=== PATIENT | female | born 1975 | race Caucasian/White ===

== ENCOUNTER 2018-10-31 12:48 | Emergency (ER) | payer OTHER ==
[~2018-10-31] VITALS: Ht 160 cm; Wt 72.6 kg
--- NOTE | 2018-10-31 14:11 | RAD ---
PQRS Compliance Statement: One or more of the following individualized dose reduction techniques were utilized for this examination: 1. Automated exposure control 2. Adjustment of the mA and/or kV according to patient size 3. Use of iterative reconstruction technique CT head without contrast 10/31/2018 1:48 PM INDICATION: Atypical headache with facial numbness COMPARISON: None available TECHNIQUE: Multiple axial CT images of the head were obtained from skull base through the vertex without intravenous contrast. FINDINGS: Head: Ventricles, sulci and basal cisterns are within normal limits. There is no hydrocephalus. Ford-white matter differentiation is normal. There is no acute intracranial hemorrhage. There is no mass, mass effect or midline shift. Posterior fossa is normal in appearance. Visualized portions of the orbits are normal. Paranasal sinuses are well aerated. Mastoid air cells are well aerated. Scalp and calvaria are normal. IMPRESSION: No acute intracranial hemorrhage. Electronically signed by: Yana Meyers MD (10/31/2018 2:08 PM) [id number]
[2018-10-31] MEDS ORDERED: SUMAtriptan SUCC 6 MG/0.5 ML VIAL SQ ONE (14:15)
--- NOTE | 2018-10-31 14:17 | PHYS DOC ---
Past History Past Medical History: Anxiety, Depression Past Surgical History: Other Alcohol Use: Occasionally Drug Use: None Adult General Chief Complaint Chief Complaint: HEADACHE HPI HPI Patient is a 43-year-old female who presents with complaint of headache for the last couple of days as well as numbness in her right religious region. She indicates that she has a history of migraine headaches and states that currently her headache is more in the back of her head on the right hand side. She states that the numbness is a new symptom for her. She admits to some mild nausea but is had no vomiting. She does admit to photophobia as well as phonophobia.[] Review of Systems Review of Systems Constitutional: Denies fever or chills [] Eyes: Denies change in visual acuity, redness, or eye pain [] HENT: Denies nasal congestion or sore throat [] Respiratory: Denies cough or shortness of breath [] Cardiovascular: No additional information not addressed in HPI [] GI: Denies abdominal pain, nausea, vomiting, bloody stools or diarrhea [] : Denies dysuria or hematuria [] Musculoskeletal: Denies back pain or joint pain [] Integument: Denies rash or skin lesions [] Neurologic: Denies headache, focal weakness or sensory changes [] Endocrine: Denies polyuria or polydipsia [] All other systems were reviewed and found to be within normal limits, except as documented in this note. Physical Exam Physical Exam Constitutional: Well developed, well nourished, no acute distress, non-toxic appearance. [] HENT: Normocephalic, atraumatic, bilateral external ears normal, oropharynx moist, no oral exudates, nose normal. [] Eyes: PERRLA, EOMI, conjunctiva normal, no discharge. [] Neck: Normal range of motion, no tenderness, supple, no stridor. [] Cardiovascular:Heart rate regular rhythm, no murmur [] Lungs & Thorax: Bilateral breath sounds clear to auscultation [] Abdomen: Bowel sounds normal, soft, no tenderness, no masses, no pulsatile masses. [] Skin: Warm, dry, no erythema, no rash. [] Back: No tenderness, no CVA tenderness. [] Extremities: No tenderness, no cyanosis, no clubbing, ROM intact, no edema. [] Neurologic: Alert and oriented X 3, normal motor function, normal sensory function, no focal deficits noted. [] Psychologic: Affect normal, judgement normal, mood normal. [] Current Patient Data Vital Signs Vital Signs Date Time Temp Pulse Resp B/P (MAP) Pulse Ox O2 Delivery O2 Flow Rate FiO2 10/31/18 13:00 97.1 81 21 96 Room Air EKG EKG [] Radiology/Procedures Radiology/Procedures [] Impressions: PROCEDURE: CT HEAD WO CONTRAST PQRS Compliance Statement: One or more of the following individualized dose reduction techniques were utilized for this examination: 1. Automated exposure control 2. Adjustment of the mA and/or kV according to patient size 3. Use of iterative reconstruction technique CT head without contrast 10/31/2018 1:48 PM INDICATION: Atypical headache with facial numbness COMPARISON: None available TECHNIQUE: Multiple axial CT images of the head were obtained from skull base through the vertex without intravenous contrast. FINDINGS: Head: Ventricles, sulci and basal cisterns are within normal limits. There is no hydrocephalus. Ford-white matter differentiation is normal. There is no acute intracranial hemorrhage. There is no mass, mass effect or midline shift. Posterior fossa is normal in appearance. Visualized portions of the orbits are normal. Paranasal sinuses are well aerated. Mastoid air cells are well aerated. Scalp and calvaria are normal. IMPRESSION: No acute intracranial hemorrhage. Electronically signed by: Yana Meyers MD (10/31/2018 2:08 PM) Course & Med Decision Making Course & Med Decision Making Pertinent Labs and Imaging studies reviewed. (See chart for details) [] Dragon Disclaimer Dragon Disclaimer This electronic medical record was generated, in whole or in part, using a voice recognition dictation system. Departure Departure: Impression: Primary Impression: Migraine Disposition: HOME, SELF-CARE Condition: STABLE Referrals: PCP,NO (PCP) Patient Instructions: Migraine Headache Scripts Ondansetron Hcl (ZOFRAN) 4 Mg Tablet 4 MG PO Q6HRS PRN for NAUSEA, #12 TAB Prov: DAYNA BOX Jr. DO 10/31/18 Sumatriptan Succinate (IMITREX) 100 Mg Tablet 1 TAB PO UD PRN for HEADACHE, #9 TAB 1 Refill Prov: DAYNA BOX Jr. DO 10/31/18 Problem Qualifiers Primary Impression: Migraine Migraine type: unspecified Status migrainosus presence: without status migrainosus Intractability: not intractable Qualified Codes: G43.909 - Migraine, unspecified, not intractable, without status migrainosus DAYNA BOX Jr. DO Oct 31, 2018 14:17
[2018-10-31 15:25] VITALS: BP 110/64
[2018-10-31] MEDS ORDERED: ONDA4TAB7 PO (15:29)
[2018-10-31] MEDS ORDERED: SUMA100T3 PO (15:29)
== END 2018-10-31 15:45 | disposition home or self-care (01) ==
LOC: ER 12:48
DX: G43.909 Migraine, unspecified, not intractable, without status migrainosus (principal)
CPT/HCPCS: 70450; 96372; 99284; J3030

== ENCOUNTER 2019-01-26 11:43 | Emergency (ER) | payer OTHER ==
[~2019-01-26] VITALS: Ht 160 cm; Wt 70.8 kg
[~2019-01-26 11:43] MED LIST: ONDA4TAB7 PO; SUMA100T3 PO
--- NOTE | 2019-01-26 12:12 | PHYS DOC ---
Past History Past Medical History: Anxiety, Depression Past Surgical History: Other Alcohol Use: Occasionally Drug Use: None Adult General Chief Complaint Chief Complaint: CHEST PAIN HPI HPI Patient is a 43-year-old female presents complaining of chest discomfort that started this morning with some shortness of breath with exertion. No radiation of the discomfort. No nausea or vomiting. No relief with Tums or Pepcid, she was concerned that this was heartburn. No pain medicines have been taken. No nausea or vomiting. No diaphoresis. No PE risk factors. No family history of cardiac i ssues age 40s to 50s. Discomfort is mild to moderate.[] Review of Systems Review of Systems Constitutional: Denies fever or chills [] Eyes: Denies change in visual acuity, redness, or eye pain [] HENT: Denies nasal congestion or sore throat [] Respiratory: Denies cough or shortness of breath [] Cardiovascular: No additional information not addressed in HPI [] GI: Denies abdominal pain, nausea, vomiting, bloody stools or diarrhea [] : Denies dysuria or hematuria [] Musculoskeletal: Denies back pain or joint pain [] Integument: Denies rash or skin lesions [] Neurologic: Denies headache, focal weakness or sensory changes [] Endocrine: Denies polyuria or polydipsia [] All other systems were reviewed and found to be within normal limits, except as documented in this note. Allergies Allergies Allergies Coded Allergies Type Severity Reaction Last Updated Verified acetaminophen Allergy Unknown 01/26/19 Yes oxycodone Allergy Unknown 01/26/19 Yes Physical Exam Physical Exam Constitutional: Well developed, well nourished, no acute distress, non-toxic appearance. [] HENT: Normocephalic, atraumatic, bilateral external ears normal, oropharynx moist, no oral exudates, nose normal. [] Eyes: PERRLA, EOMI, conjunctiva normal, no discharge. [] Neck: Normal range of motion, no tenderness, supple, no stridor. [] Cardiovascular:Heart rate regular rhythm, no murmur [] Lungs & Thorax: Bilateral breath sounds clear to auscultation [] Abdomen: Bowel sounds normal, soft, no tenderness, no masses, no pulsatile masses. [] Skin: Warm, dry, no erythema, no rash. [] Back: No tenderness, no CVA tenderness. [] Extremities: No tenderness, no cyanosis, no clubbing, ROM intact, no edema. [] Neurologic: Alert and oriented X 3, normal motor function, normal sensory function, no focal deficits noted. [] Psychologic: Affect normal, judgement normal, mood normal. [] Current Patient Data Vital Signs Vital Signs Date Time Temp Pulse Resp B/P (MAP) Pulse Ox O2 Delivery O2 Flow Rate FiO2 01/26/19 11:55 98.0 80 16 95 Room Air EKG EKG EKG shows a sinus rhythm at 68 bpm, normal axis, QTC 402 ms, no ST elevation. Interpreted by me at 1200. Patient had an EKG performed at the [facility] which she brought with her and this does not show any acute changes. The previous one was performed at 1119 today[] Radiology/Procedures Radiology/Procedures PROCEDURE: CHEST PA & LATERAL EXAM: Chest, 2 views. HISTORY: Chest pain. COMPARISON: None. FINDINGS: 2 views of the chest are obtained. There is no infiltrate, pleural effusion or pneumothorax. The heart is normal in size. IMPRESSION: No acute pulmonary finding. PROCEDURE: CT ANGIOGRAPHY CHEST Examination: CT angiography chest History: History of chest pain, shortness of breath, elevated d-dimer COMPARISON: None available Technique: Axial CT angiographic images were performed with IV contrast. Coronal and sagittal 3-D MIP reformats are performed Exposure: One or more of the following individualized dose reduction techniques were utilized for this examination: 1. Automated exposure control 2. Adjustment of the mA and/or kV according to patient size 3. Use of iterative reconstruction technique FINDINGS: The central airways are patent. The heart size grossly appears unremarkable. The caliber of the aorta grossly appears unremarkable. There is no evidence of filling defect identified in the main pulmonary arterial trunk and right and left main pulmonary arteries and the visualized lobar, segmental branches of the pulmonary arteries. Minimal bibasilar lung atelectasis. The liver, adrenals grossly appears unremarkable. The spleen measures 14 cm in length. No evidence of lytic bony destructive lesion. IMPRESSION: 1. No evidence of pulmonary embolism. 2. Minimal bibasilar lung atelectasis.. 3. Mild splenomegaly.[] Course & Med Decision Making Course & Med Decision Making Pertinent Labs and Imaging studies reviewed. (See chart for details) ED course: Patient arrived, was placed in bed, and tolerated exam well. She was transported to and from radiology with any complications. After return lab and imaging findings, these were discussed with the patient voiced understanding. All questions were answered. She was discharged in improved condition. Medical decision making: There is no evidence of pneumonia, pneumothorax, pulmonary embolism, nor acute coronary syndrome. No evidence of thoracic aneurysm nor esophageal rupture.[] Dragon Disclaimer Dragon Disclaimer This electronic medical record was generated, in whole or in part, using a voice recognition dictation system. Departure Departure: Impression: Primary Impression: Chest pain Disposition: HOME, SELF-CARE Condition: IMPROVED Referrals: PCP,LISA (PCP) Patient Instructions: Chest Pain (Nonspecific) Additional Instructions: Follow-up with your regular doctor in 2 days. Return to the ER if worsening pain, difficulty breathing, fever of more than 101, or any other concerns. Scripts Meloxicam (MELOXICAM) 7.5 Mg Tablet 7.5 MG PO DAILY for PAIN, #20 TAB Prov: ZAC MOROCHO DO 01/26/19 Problem Qualifiers Primary Impression: Chest pain Chest pain type: unspecified Qualified Codes: R07.9 - Chest pain, unspecified ZAC MOROCHO DO Jan 26, 2019 12:12
[2019-01-26] MEDS ORDERED: ASPIRIN 81 MG TAB.CHEW PO ONE (12:30)
[2019-01-26] MEDS ORDERED: KETOROLAC 15 MG/ML VIAL. IV ONE (12:30)
[2019-01-26 12:43] LABS: BASO % 0 % (0-3); EOS % 1 % (0-3); HEMATOCRIT 38.8 % (36.0-47.0); HEMOGLOBIN 13.7 g/dL (12.0-15.5); LYMPH # 0.9 x10^3/uL (1.0-4.8); LYMPH % 20 % (24-48); MEAN CORPUSCULAR HEMOGLOBIN 32 pg (25-35); MEAN CORPUSCULAR HGB CONC 35 g/dL (31-37); MEAN CORPUSCULAR VOLUME 90 fL (79-100); MONO # 0.3 x10^3/uL (0.0-1.1); MONO % 7 % (0-9); NEUT # 3.4 x10^3uL (1.8-7.7); NEUT % 72 % (31-73); PLATELET COUNT 125 x10^3/uL (140-400); RED CELL DISTRIBUTION WIDTH 12.8 % (11.5-14.5); WHITE BLOOD COUNT 4.7 x10^3/uL (4.0-11.0)
--- NOTE | 2019-01-26 12:44 | RAD ---
EXAM: Chest, 2 views. HISTORY: Chest pain. COMPARISON: None. FINDINGS: 2 views of the chest are obtained. There is no infiltrate, pleural effusion or pneumothorax. The heart is normal in size. IMPRESSION: No acute pulmonary finding. Electronically signed by: Samira Schafer MD (01/26/2019 12:41 PM) [place] [id number]
[2019-01-26 13:03] LABS: POTASSIUM ISTAT 3.8 mmol/L (3.5-5.0)
[2019-01-26 13:05] LABS: HEMOGLOBIN ISTAT 16.7 gm/dL
[2019-01-26 13:11] LABS: BILIRUBIN,URINE NEG (NEG); CLARITY,URINE HAZY; COLOR,URINE YELLOW; GLUCOSE,URINE NEG (NEG); NITRITE,URINE NEG (NEG); UROBILINOGEN,URINE 0.2 mg/dL (0.2 mg/dL)
[2019-01-26 13:12] LABS: BACTERIA,URINE FEW /HPF (0-FEW); SQUAMOUS EPITHELIAL CELL,UR FEW /LPF
[2019-01-26 13:56] LABS: ALBUMIN 4.2 g/dL (3.4-5.0); DIRECT BILIRUBIN 0.7 mg/dL (0.0-0.2); TOTAL BILIRUBIN 0.9 mg/dL (0.2-1.0); TOTAL PROTEIN 7.8 g/dL (6.4-8.2)
[2019-01-26 13:57] LABS: MAGNESIUM 1.9 mg/dL (1.8-2.4)
[2019-01-26] MEDS ORDERED: IOHEXOL 350 MG/ML 100 ML VIAL. IV ONE (14:00)
--- NOTE | 2019-01-26 14:25 | RAD ---
Examination: CT angiography chest History: History of chest pain, shortness of breath, elevated d-dimer COMPARISON: None available Technique: Axial CT angiographic images were performed with IV contrast. Coronal and sagittal 3-D MIP reformats are performed Exposure: One or more of the following individualized dose reduction techniques were utilized for this examination: 1. Automated exposure control 2. Adjustment of the mA and/or kV according to patient size 3. Use of iterative reconstruction technique FINDINGS: The central airways are patent. The heart size grossly appears unremarkable. The caliber of the aorta grossly appears unremarkable. There is no evidence of filling defect identified in the main pulmonary arterial trunk and right and left main pulmonary arteries and the visualized lobar, segmental branches of the pulmonary arteries. Minimal bibasilar lung atelectasis. The liver, adrenals grossly appears unremarkable. The spleen measures 14 cm in length. No evidence of lytic bony destructive lesion. IMPRESSION: 1. No evidence of pulmonary embolism. 2. Minimal bibasilar lung atelectasis.. 3. Mild splenomegaly. Electronically signed by: Juan David Stiles MD (01/26/2019 2:22 PM) [id number]
[2019-01-26] MEDS ORDERED: MELO7.5T29 PO (14:34)
[2019-01-26 14:56] VITALS: BP 115/58
--- NOTE | 2019-01-26 15:23 | EKG ---
[address] [address] Test Date: 2019-01-26 Test Time: 11:57:21 Pat Name: MIGUEL YANG Department: Room: Gender: F Assistant Art Director: SHELTON : 1975 Requested By: ZAC MOROCHO Order Number: [id number] Reading MD: Nathan Carrasquillo MD Measurements Intervals [place] Rate: 68 P: 48 ND: 144 QRS: 18 QRSD: 96 T: 62 QT: 378 QTc: 402 Interpretive Statements SINUS RHYTHM CONSIDER ANTERIOR ISCHEMIA Electronically Signed On 02-06-2019 9:37:01 CDT by Nathan Carrasquillo MD
== END 2019-01-26 14:55 | disposition home or self-care (01) ==
LOC: ER 11:43
DX: R07.89 Other chest pain (principal); F41.9 Anxiety disorder, unspecified; Z88.6 Allergy status to analgesic agent; Z88.5 Allergy status to narcotic agent
CPT/HCPCS: 36415; 71046; 71275; 80047; 80076; 81001; 81025; 83690; 83735; 83880; 84443; 84484; 85025; 85379; 85610; 85730; 87086; 93005; 96374; 99285; J1885; Q9967

== ENCOUNTER → 2019-07-25 | Outpatient (CLI) | payer OTHER ==
[~2019-07-25] MED LIST changes: +MELO7.5T29 PO
--- NOTE | 2019-07-25 13:21 | RAD ---
Examination: Right diagnostic mammogram. INDICATION: Palpable lump in the right breast. COMPARISON: 02/04/2017, 01/31/2019. TECHNIQUE: CC and MLO views of the right breast using 2-D and 3-D technique were obtained with the marker in the area of patient's reported palpable concern. Images reviewed with computer-aided detection. FINDINGS: Scattered fibroglandular densities. No developing mass, suspicious clustered architectural distortion. Area of palpable concern as marked at the middle third medial right breast shows no definite mammographic correlate. IMPRESSION: Incomplete. Right breast needs additional imaging. Recommend targeted ultrasound of the area of patient reported palpable concern. This will be performed and reported separately same day. BI-RADS Category 0 Incomplete. Needs additional imaging evaluation.
--- NOTE | 2019-07-25 13:46 | RAD ---
Examination: Limited right breast ultrasound. INDICATION: Right breast lump and focal tenderness. COMPARISON: Earlier same day right diagnostic mammogram and bilateral mammogram of January 31, 2019. TECHNIQUE: Grayscale ultrasound imaging of the area of palpable concern in the right breast as reported by the patient was performed along with color Doppler imaging. FINDINGS: Targeted ultrasound of the patient's area of pain and palpable concern at the 5:00 position 4 cm from the right nipple reveals fatty breast tissue with no sonographic abnormality or sonographic correlate to the area of focal tenderness or palpable area of concern. The retroareolar right breast is also unremarkable. [employer] images from the 5 to 7:00 position 4 cm from the nipple were obtained for documentation. IMPRESSION: Negative limited right breast ultrasound. No evidence of malignancy. Recommend clinical management of patient's area of clinical concern, including biopsy if there are any clinically suspicious findings in the opinion of the patient's referring provider. In the absence of a clinically suspicious findings, recommend return to routine screening next due after February 01, 2020. BI-RADS Category 1 Negative. Patient entered into a reminder system with target due date for next mammogram. BI-RADS 1 -- negative findings (within normal)
== END ==
LOC: MAMMO 12:29
PROVIDERS: ATTEND Nurse Practitioner Family
DX: N63.13 Unspecified lump in the right breast, lower outer quadrant (principal)
CPT/HCPCS: 76641; 77065; G0279; 77061